=== PATIENT | male | born 1975 | race Caucasian/White ===

== ENCOUNTER 2021-02-27 08:30 | Outpatient (CLI) | payer OTHER, SELFPAY ==
[2021-02-27 08:37] VITALS: BP 130/91; PULSE 69; RESP 17; TEMP 36.9; O2SAT 96; BMI 36.0
[2021-02-27 09:22] VITALS: BP 119/81; PULSE 69; RESP 17; TEMP 36.7; O2SAT 94
[2021-02-27 10:18] VITALS: BP 123/87; PULSE 67; RESP 17; TEMP 36.7; O2SAT 97
[2021-02-27 10:36] VITALS: BP 123/87; PULSE 67; RESP 17; TEMP 36.7; O2SAT 97
== END 2021-02-27 08:31 | disposition home or self-care (01) ==
PROVIDERS: PCP Internal Medicine; Visit Provider Internal Medicine
DX: U07.1 COVID-19 (principal)
CPT/HCPCS: 96365